=== PATIENT | male | born 1950 | race Caucasian/White ===

== ENCOUNTER → 2018-02-16 08:31 | Outpatient (CLI) | payer MEDICARE, SELFPAY ==
--- NOTE | 2018-02-16 08:35 | US_ITS ---
US aorta HISTORY: Follow-up abdominal aortic aneurysm COMPARISON: none FINDINGS: The aorta at the level of the thyroid measures approximately 2.8 cm. The upper abdominal aorta 2 cm below the xiphoid measures approximately 2.3 cm in AP dimension. The abdominal aorta at the level of the umbilicus is 2.2 cm in AP dimension. The proximal iliacs are each at 1 cm. 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
== END ==
PROVIDERS: PCP Family Medicine; Visit Provider Internal Medicine
DX: I71.4 Abdominal aortic aneurysm, without rupture (principal)
CPT/HCPCS: 76770